=== PATIENT | female | born 1940 | race Caucasian/White ===

== ENCOUNTER 2017-03-15 10:27 | Emergency (ER) | payer MEDICARE, OTHER ==
[~2017-03-15] VITALS: Ht 162.6 cm; Wt 60.5 kg
[~2017-03-15 10:27] MED LIST: ACTOS30 MG PO; GLUCOPHAGE XR750 MG PO; LEVOXYL0.137 MG PO; NORCO 325 MG-51 TAB PO; PRAVACHOL 40MG40 MG PO; TRICOR145 MG PO
[2017-03-15 10:35] VITALS: TEMP 96.9
[2017-03-15] MEDS ORDERED: GLUCOPHAGE XR750 MG PO (10:56)
[2017-03-15] MEDS ORDERED: FISH OIL 1000MG1 CAP PO (10:57)
[2017-03-15] MEDS ORDERED: GLUCOSAMINE & C1 TAB PO (10:57)
[2017-03-15 11:34] LABS: ADJUSTED CALCIUM 7.4 mg/dL (8.4-10.2); ALBUMIN 4.4 gm/dL (3.5-5.0); BILIRUBIN,TOTAL 0.7 mg/dL (0.0-1.0); CALCIUM 7.7 mg/dL (8.4-10.2); CREATININE, serum 1.61 mg/dL (0.52-1.25); POTASSIUM 3.9 mmol/L (3.4-5.0); TOTAL PROTEIN 7.8 gm/dL (6.4-8.2)
[2017-03-15 11:35] LABS: BASO % 0.3 % (0.0-2.0); EOS # 0.4 (0.0-0.7); GRAN # 5.9 (1.4-6.5); GRAN % 67.7 % (42.2-75.2); HEMATOCRIT 43.4 % (37.0-47.0); HEMOGLOBIN 14.3 g/dl (12.5-16.0); LYMPH # 1.5 (1.2-3.4); LYMPH % 17.5 % (20.0-51.0); MEAN CELL VOLUME 90 fl (80.0-100.0); MEAN CORPUSCULAR HEMOGLOBIN 30 pg (27.0-31.0); MEAN CORPUSCULAR HGB CONC 33 g/dl (33.0-37.0); MEAN PLATELET VOLUME 10.4 fl (7.4-10.4); MONO # 0.9 (0.1-0.6); PLATELET COUNT 349 K/mm3 (130-400); RED BLOOD COUNT 4.82 M/mm3 (4.10-5.30); REDCELL DISTRIBUTION WIDTH-CV 12.1 % (11.5-14.5); WHITE BLOOD COUNT 8.7 K/mm3 (4.8-10.8)
[2017-03-15 12:00] LABS: PH 5 (5-8); URINE APPEARANCE Clear; URINE BACTERIA Rare /hpf; URINE BILIRUBIN Negative (NEGATIVE); URINE BLOOD Negative (NEGATIVE); URINE COLOR Yellow; URINE GLUCOSE Negative (NEGATIVE); URINE KETONE Negative (NEGATIVE); URINE RBC 0-2 /hpf; URINE UROBILINOGEN Negative (NEGATIVE)
[2017-03-15 13:31] VITALS: BP 143/57; PULSE 64
== END 2017-03-15 13:32 | disposition home or self-care (01) ==
LOC: COL.ER 10:27
PROVIDERS: Emergency Medicine
DX: N28.9 Disorder of kidney and ureter, unspecified (principal); R11.2 Nausea with vomiting, unspecified; R19.7 Diarrhea, unspecified; E11.9 Type 2 diabetes mellitus without complications; Z79.84 Long term (current) use of oral hypoglycemic drugs
CPT/HCPCS: C9113; J2405; J2765; J7030

== ENCOUNTER 2017-03-18 10:54 | Outpatient (CLI) | payer MEDICARE, OTHER ==
[~2017-03-18] VITALS: Ht 162.6 cm; Wt 60.0 kg
[~2017-03-18 10:54] MED LIST changes: +FISH OIL 1000MG1 CAP PO; +GLUCOSAMINE & C1 TAB PO
[2017-03-18 11:30] VITALS: BP 126/46; PULSE 72; TEMP 97.3
[2017-03-18] MEDS ORDERED: CIPRO 500MG TA500 MG PO (11:51)
== END 2017-03-18 13:49 | disposition home or self-care (01) ==
LOC: EUO 10:54
DX: E86.0 Dehydration (principal); K52.9 Noninfective gastroenteritis and colitis, unspecified; N28.9 Disorder of kidney and ureter, unspecified
CPT/HCPCS: J7030

== ENCOUNTER 2017-11-19 21:46 | Emergency (ER) | payer MEDICARE, OTHER ==
[~2017-11-19] VITALS: Ht 162.6 cm; Wt 59.5 kg
[~2017-11-19 21:46] MED LIST changes: +CIPRO 500MG TA500 MG PO; +LEVOXYL0.125 MG PO; -LEVOXYL0.137 MG PO
[2017-11-19 21:54] VITALS: TEMP 97.6
[2017-11-19] MEDS ORDERED: NORCO 325 MG-7.1 TAB PO (21:56)
[2017-11-19] MEDS ORDERED: CELEBREX 200MG200 MG PO (21:57)
[2017-11-19] MEDS ORDERED: ULTRAM 50MG TAB50 MG PO (21:57)
[2017-11-19 22:27] LABS: BASO % 0.3 % (0.0-2.0); EOS # 0.2 (0.0-0.7); EOS % 1.6 % (0-4.0); GRAN # 7.3 (1.4-6.5); GRAN % 70.7 % (42.2-75.2); HEMATOCRIT 37.2 % (37.0-47.0); HEMOGLOBIN 11.8 g/dl (12.5-16.0); LYMPH # 1.8 (1.2-3.4); LYMPH % 17.8 % (20.0-51.0); MEAN CELL VOLUME 92 fl (80.0-100.0); MEAN CORPUSCULAR HEMOGLOBIN 29 pg (27.0-31.0); MEAN CORPUSCULAR HGB CONC 32 g/dl (33.0-37.0); MEAN PLATELET VOLUME 11.3 fl (7.4-10.4); MONO # 0.9 (0.1-0.6); MONO % 8.8 % (1.7-9.3); PLATELET COUNT 323 K/mm3 (130-400); RED BLOOD COUNT 4.04 M/mm3 (4.10-5.30); REDCELL DISTRIBUTION WIDTH-CV 13.2 % (11.5-14.5)
[2017-11-19 22:28] LABS: COLLECTION METHOD CLEAN CATCH
[2017-11-19 22:35] LABS: PH 5 (5-8); SQUAMOUS EPITHELIAL 0-2 /hpf; URINE APPEARANCE Clear; URINE BACTERIA None Seen /hpf; URINE BILIRUBIN Negative (NEGATIVE); URINE BLOOD Negative (NEGATIVE); URINE COLOR Yellow; URINE GLUCOSE 3+ (NEGATIVE); URINE KETONE 1+ (NEGATIVE); URINE LEUKOCYTE ESTERASE Negative (NEGATIVE); URINE NITRATE Negative (NEGATIVE); URINE PROTEIN(semi-quant) Negative (NEGATIVE); URINE RBC 0-2 /hpf; URINE UROBILINOGEN Negative (NEGATIVE)
[2017-11-19 22:36] LABS: ALBUMIN 3.8 gm/dL (3.5-5.0); CALCIUM 9.8 mg/dL (8.4-10.2); CREATININE, serum 0.83 mg/dL (0.52-1.25); MAGNESIUM 1.9 mg/dL (1.6-2.3); PHOSPHOROUS 4.3 mg/dL (2.5-4.5); POTASSIUM 4.4 mmol/L (3.4-5.0); TOTAL PROTEIN 7.5 gm/dL (6.4-8.2)
[2017-11-19] MEDS ORDERED: VITAMIN C500 MG PO (22:59)
[2017-11-19] MEDS ORDERED: FOSAMAX5 MG PO (23:00)
[2017-11-19] MEDS ORDERED: NATURAL IRON65 MG (23:00)
[2017-11-20] MEDS ORDERED: ZOFRAN ODT4 MG PO (00:31)
[2017-11-20 00:44] VITALS: BP 129/83; PULSE 78
== END 2017-11-20 00:55 | disposition home or self-care (01) ==
LOC: COL.ER 21:46
PROVIDERS: Emergency Medicine
DX: R11.10 Vomiting, unspecified (principal); K59.00 Constipation, unspecified; E11.9 Type 2 diabetes mellitus without complications; Z90.49 Acquired absence of other specified parts of digestive tract; Z96.652 Presence of left artificial knee joint; Z79.84 Long term (current) use of oral hypoglycemic drugs
CPT/HCPCS: J2405; J2765; J7030

== ENCOUNTER 2017-11-22 03:54 | Observation (INO) | payer MEDICARE, OTHER ==
[~2017-11-22] VITALS: Ht 162.6 cm; Wt 60.1 kg
[~2017-11-22 03:54] MED LIST changes: +CELEBREX 200MG200 MG PO; +FOSAMAX5 MG PO; +NATURAL IRON65 MG; +NORCO 325 MG-7.1 TAB PO; +ULTRAM 50MG TAB50 MG PO; +VITAMIN C500 MG PO; +ZOFRAN ODT4 MG PO
[2017-11-22] MEDS ORDERED: ASPIRIN 32325 MG/TAB PO (04:12)
[2017-11-22] MEDS ORDERED: INSULIN SQ (04:13)
[2017-11-22] MEDS ORDERED: JARDIANCE10 PO (04:15)
[2017-11-22] MEDS ORDERED: COLACE 100100 MG/CAP PO (04:15)
[2017-11-22 04:23] LABS: BASO % 0.3 % (0.0-2.0); EOS # 0.1 (0.0-0.7); EOS % 1.3 % (0-4.0); GRAN # 8.4 (1.4-6.5); GRAN % 75.7 % (42.2-75.2); HEMATOCRIT 40.9 % (37.0-47.0); HEMOGLOBIN 13.2 g/dl (12.5-16.0); LYMPH # 1.4 (1.2-3.4); MEAN CELL VOLUME 91 fl (80.0-100.0); MEAN CORPUSCULAR HEMOGLOBIN 29 pg (27.0-31.0); MEAN CORPUSCULAR HGB CONC 32 g/dl (33.0-37.0); MEAN PLATELET VOLUME 10.6 fl (7.4-10.4); MONO # 0.9 (0.1-0.6); PLATELET COUNT 404 K/mm3 (130-400); RED BLOOD COUNT 4.49 M/mm3 (4.10-5.30)
[2017-11-22 04:35] LABS: INR 0.9 (0.8-3.0)
[2017-11-22 04:40] LABS: ALANINE AMINOTRANSFERASE 29 U/L (9-52); ALBUMIN 4.3 gm/dL (3.5-5.0); ALKALINE PHOSPHATASE 85 U/L (50-136); ANION GAP 19 mmol/L (7-16); AST,SGOT 29 U/L (15-37); BILIRUBIN,TOTAL 1.3 mg/dL (0.0-1.0); BLOOD UREA NITROGEN 16 mg/dL (7-17); CALCIUM 9.4 mg/dL (8.4-10.2); CARBON DIOXIDE 24 mmol/L (22-30); CHLORIDE 95 mmol/L (98-107); CREATININE, serum 0.79 mg/dL (0.52-1.25); GLUCOSE 150 mg/dL (74-106); LIPASE 59 U/L (23-300); POTASSIUM 4.5 mmol/L (3.4-5.0); SODIUM 138 mmol/L (137-145); TOTAL PROTEIN 8.9 gm/dL (6.4-8.2)
[2017-11-22 04:54] LABS: TROPONIN-I < 0.012 ng/mL (0.000-0.034)
[2017-11-22] MEDS ORDERED: FOLIC ACID 40400 MCG PO (05:34)
[2017-11-22 07:49] VITALS: BP 161/55; PULSE 76; TEMP 98
[2017-11-22 11:39] VITALS: BP 143/57; PULSE 98; TEMP 98.6
[2017-11-22 14:51] VITALS: BP 153/54; PULSE 91; TEMP 99.2
[2017-11-22] MEDS ORDERED: MIRALAX PA17 GM/Dose PO (18:25)
== END 2017-11-22 19:00 | disposition home or self-care (01) ==
LOC: COL.ER 03:54 → SURG 06:25
PROVIDERS: Emergency Medicine
DX: R11.2 Nausea with vomiting, unspecified (principal); I10 Essential (primary) hypertension; M19.90 Unspecified osteoarthritis, unspecified site; E11.9 Type 2 diabetes mellitus without complications; Z90.710 Acquired absence of both cervix and uterus; Z90.49 Acquired absence of other specified parts of digestive tract; Z96.652 Presence of left artificial knee joint; Z79.4 Long term (current) use of insulin; Z83.3 Family history of diabetes mellitus
CPT/HCPCS: G0378; J2765; J7030; Q9967

== ENCOUNTER → 2018-10-13 | Outpatient (CLI) | payer MEDICARE, OTHER ==
[~2018-10-13] MED LIST changes: +ASPIRIN 32325 MG/TAB PO; +COLACE 100100 MG/CAP PO; +FOLIC ACID 40400 MCG PO; +INSULIN SQ; +JARDIANCE10 PO; +MIRALAX PA17 GM/Dose PO
== END ==
LOC: MC.RAD 08:15
DX: Z12.31 Encounter for screening mammogram for malignant neoplasm of breast (principal)

== ENCOUNTER 2018-11-01 14:03 | Outpatient (CLI) | payer MEDICARE, OTHER ==
[~2018-11-01] VITALS: Ht 162.6 cm; Wt 69.2 kg
[2018-11-01] MEDS ORDERED: TRESIBA FL100 UNIT/1 SQ (14:15)
[2018-11-01 14:30] VITALS: BP 176/70; PULSE 76; TEMP 97
== END 2018-11-01 15:30 | disposition home or self-care (01) ==
LOC: EUO 14:03
DX: M81.0 Age-related osteoporosis without current pathological fracture (principal)
CPT/HCPCS: J0897

== ENCOUNTER 2021-01-02 14:02 | Outpatient (CLI) | payer MEDICARE, OTHER ==
[~2021-01-02] VITALS: Ht 162.6 cm; Wt 65.5 kg
[~2021-01-02 14:02] MED LIST changes: +LEVOXYL0.1 MG PO; -LEVOXYL0.125 MG PO; +TRESIBA FL100 UNIT/1 SQ
[2021-01-02] MEDS ORDERED: GLUCOPHAGE500 MG/TAB PO (14:55)
[2021-01-02] MEDS ORDERED: HUMALOG100 U/ML SQ (14:55)
[2021-01-02] MEDS ORDERED: HYZAAR 25 MG-101 TAB PO (14:56)
[2021-01-02] MEDS ORDERED: ACTOS30 MG PO (14:57)
[2021-01-02 15:17] VITALS: BP 132/43; PULSE 69; TEMP 98.8
== END 2021-01-02 15:18 | disposition home or self-care (01) ==
LOC: EUO 14:02
DX: M81.0 Age-related osteoporosis without current pathological fracture (principal)
CPT/HCPCS: J0897

== ENCOUNTER 2021-07-13 12:36 | Inpatient (IN) | payer MEDICARE, OTHER ==
[~2021-07-13] VITALS: Ht 162.6 cm; Wt 66.8 kg
[~2021-07-13 12:36] MED LIST changes: +GLUCOPHAGE500 MG/TAB PO; +HUMALOG100 U/ML SQ; +HYZAAR 25 MG-101 TAB PO
[2021-07-13 13:51] LABS: BASO % 0.3 % (0.0-2.0); EOS # 0.1 K/mm3 (0.0-0.7); EOS % 0.8 % (0.0-4.0); GRAN # 9.7 K/mm3 (1.4-6.5); GRAN % 82.8 % (42.2-75.2); HEMOGLOBIN 11.9 g/dl (12.5-16.0); LYMPH # 0.8 K/mm3 (1.2-3.4); LYMPH % 6.8 % (20.0-51.0); MEAN CELL VOLUME 91 fl (80.0-100.0); MEAN CORPUSCULAR HEMOGLOBIN 30 pg (27-31); MEAN CORPUSCULAR HGB CONC 33 g/dl (33.0-37.0); MONO % 8.6 % (1.7-9.3); PLATELET COUNT 349 K/mm3 (130-400); RED BLOOD COUNT 4.02 M/mm3 (4.10-5.30); REDCELL DISTRIBUTION WIDTH-CV 12.6 % (11.5-14.5)
[2021-07-13 13:57] LABS: HEMATOCRIT 36.4 % (37.0-47.0)
[2021-07-13 14:11] LABS: ALBUMIN 3.2 gm/dL (3.4-4.8); BILIRUBIN,TOTAL 1.1 mg/dL (0.2-1.2); C-REACTIVE PROTEIN 7.36 mg/dL (0.00-0.50); CALCIUM 8.5 mg/dL (8.4-10.2); CREATININE, serum 1.73 mg/dL (0.57-1.11); POTASSIUM 3.5 mmol/L (3.5-4.5); TOTAL PROTEIN 7.2 gm/dL (6.2-8.1)
[2021-07-13 15:53] LABS: COLLECTION METHOD CLEAN CATCH
[2021-07-13 16:01] LABS: PH 5 (5-8); SQUAMOUS EPITHELIAL 0-2 /hpf (0-10); URINE APPEARANCE Hazy (CLEAR/HAZY); URINE BACTERIA Rare /hpf (NONE SEEN); URINE BILIRUBIN Negative (NEGATIVE); URINE BLOOD Negative (NEGATIVE); URINE COLOR Yellow (YELLOW); URINE GLUCOSE Negative (NEGATIVE); URINE KETONE Trace (NEGATIVE); URINE LEUKOCYTE ESTERASE Negative (NEGATIVE); URINE NITRATE Negative (NEGATIVE); URINE PROTEIN(semi-quant) Negative (NEGATIVE); URINE RBC 0-2 /hpf (0-2)
--- NOTE | 2021-07-13 19:59 | NUR ---
RECEIVED REPORT FROM Sacha GRANT, HERON. WAITING FOR PATIENT ARRIVAL FOR ADMIT TO ROOM 343.
--- NOTE | 2021-07-13 20:17 | NUR ---
PATIENT TO ROOM PER W/C FROM E.R. PATIENT WITH NO COMPLAINTS ON ADMIT TO ROOM 343
[2021-07-13 20:25] VITALS: BP 145/50; PULSE 74; TEMP 98.3
[2021-07-14] VITALS (7 sets, daily range): BP systolic 120–141; BP diastolic 37–61; PULSE 63–70; TEMP 97.6–98.6
[2021-07-14 06:48] LABS: BASO % 0.3 % (0.0-2.0); EOS # 0.1 K/mm3 (0.0-0.7); EOS % 1.4 % (0.0-4.0); GRAN # 7.6 K/mm3 (1.4-6.5); GRAN % 77.9 % (42.2-75.2); HEMOGLOBIN 10.8 g/dl (12.5-16.0); LYMPH # 1.1 K/mm3 (1.2-3.4); LYMPH % 10.9 % (20.0-51.0); MEAN CELL VOLUME 91 fl (80.0-100.0); MEAN CORPUSCULAR HEMOGLOBIN 30 pg (27-31); MEAN CORPUSCULAR HGB CONC 33 g/dl (33.0-37.0); MEAN PLATELET VOLUME 11.6 fl (7.4-10.4); MONO # 0.9 K/mm3 (0.1-0.6); MONO % 9.1 % (1.7-9.3); PLATELET COUNT 338 K/mm3 (130-400); RED BLOOD COUNT 3.64 M/mm3 (4.10-5.30); REDCELL DISTRIBUTION WIDTH-CV 12.7 % (11.5-14.5)
[2021-07-14 07:00] LABS: HEMATOCRIT 33.2 % (37.0-47.0)
[2021-07-14 07:17] LABS: ALBUMIN 2.8 gm/dL (3.4-4.8); CALCIUM 8.2 mg/dL (8.4-10.2); CREATININE, serum 1.62 mg/dL (0.57-1.11); MAGNESIUM 1.6 mg/dL (1.6-2.6); PHOSPHOROUS 2.6 mg/dL (2.3-4.7); POTASSIUM 3.7 mmol/L (3.5-4.5)
--- NOTE | 2021-07-14 07:33 | NUR ---
CHANGE OF SHIFT REPORT GIVEN TO DAY SHIFT RNLORENA
--- NOTE | 2021-07-14 09:15 | NUR ---
Pt resting in bed upon entering room. She has just returned from the restroom in which she stated she had a small bowel movement. Pt rates her pain 3/10 at this time and stated that she wouldn't need anything until closer to 7/10. Pt reports that she occasionally gets dizzy when she changes positions too fast. Educated to make sure to ring for nursing staff to help her get up if needed. PT in working with pt as we were leaving
--- NOTE | 2021-07-14 10:41 | NUR ---
SELWYN met with the patient to discuss discharge plan. The patient lives alone in a duplex in [place]. She reports independence with ADLs and does not have any DME. The patient's PCP is Dr. Fracisco Youngblood and she receives her medications from [facility]. She reports no difficulties obtaining her meds. The patient does not have a DPOA-HC in EMR, but she states that she does have one completed and that her PCP's office should have a copy of it. She reports that she designated her daughter, Terri (ph#[phone]). She states that she lost her to YESSICA and has three children: Terri, Mynor, and Enedina. SELWYN contacted Mae at Dr. Youngblood's office and requested a copy. Mae reports that they do have a DPOA-HC on file and will fax it to the surgical unit. The patient plans on returning home upon discharge. No additional needs at this time. *Discharge plan: home*
--- NOTE | 2021-07-14 10:56 | NUR ---
Initial visit; Patient thanked Academic Computing Director for looking in on her, offering prayer and God's blessings.
--- NOTE | 2021-07-14 14:30 | NUR ---
IV in left AC started leaking. New IV started in left forearm. Pt tolerated well. Pt denies any needs, continues to rate pain 3/10 and is steady on her feet to the restroom
--- NOTE | 2021-07-14 20:00 | NUR ---
PT AWAKE, ALERT AND ORIENTED X4. HAS IVF TO LEFT WRIST INFUSING WITHOUT PROBLEM. IS NPO. DENIES NEED FOR PAIN MEDS, REPORTS PASSING FLATUS.
[2021-07-15 04:10] VITALS: BP 157/52; PULSE 64; TEMP 97.9
--- NOTE | 2021-07-15 06:00 | NUR ---
PT TAKES SHOWER. NO BM'S THIS SHIFT. SCHEDULED AM MED GIVEN WITH SIP OF WATER.
[2021-07-15 06:52] LABS: BASO # 0.1 K/mm3 (0.0-0.2); BASO % 0.7 % (0.0-2.0); EOS # 0.2 K/mm3 (0.0-0.7); EOS % 2.6 % (0.0-4.0); GRAN # 6.8 K/mm3 (1.4-6.5); GRAN % 73.9 % (42.2-75.2); HEMOGLOBIN 10.5 g/dl (12.5-16.0); LYMPH # 1.2 K/mm3 (1.2-3.4); LYMPH % 12.9 % (20.0-51.0); MEAN CELL VOLUME 91 fl (80.0-100.0); MEAN CORPUSCULAR HEMOGLOBIN 30 pg (27-31); MEAN CORPUSCULAR HGB CONC 32 g/dl (33.0-37.0); MEAN PLATELET VOLUME 11.5 fl (7.4-10.4); MONO # 0.8 K/mm3 (0.1-0.6); MONO % 8.8 % (1.7-9.3); PLATELET COUNT 381 K/mm3 (130-400); RED BLOOD COUNT 3.55 M/mm3 (4.10-5.30); REDCELL DISTRIBUTION WIDTH-CV 12.8 % (11.5-14.5)
[2021-07-15 06:54] LABS: HEMATOCRIT 32.4 % (37.0-47.0)
[2021-07-15 07:17] LABS: ALBUMIN 2.9 gm/dL (3.4-4.8); CALCIUM 8.4 mg/dL (8.4-10.2); CREATININE, serum 1.39 mg/dL (0.57-1.11); MAGNESIUM 1.7 mg/dL (1.6-2.6); POTASSIUM 3.5 mmol/L (3.5-4.5)
[2021-07-15 07:33] VITALS: BP 123/45; PULSE 62; TEMP 97.9
--- NOTE | 2021-07-15 08:14 | NUR ---
Pt overall doing well this morning. She has been up and took a shower. Reports that her pain continues to get better. She still states that she occasionally has some upper gastric pain, but that it is tolerable. Pt aware that she continues to not have anything to eat or drink. IV fluids switched per order. No other needs, call light within reach
--- NOTE | 2021-07-15 10:42 | NUR ---
Pt has had low fiber breakfast. She tolerated with no complaints of nausea or vomiting as of now. Pt aware that there is an order that will require a urine sample. Supplies placed in bathroom. Pt denies any other needs, call light within reach.
[2021-07-15 11:20] VITALS: BP 125/47; PULSE 70; TEMP 97.9
--- NOTE | 2021-07-15 12:43 | NUR ---
Follow-up; Patient states she is doing much better today and states she is glad to see Manager Decision Support who wished her God's blessings ie. healing.
--- NOTE | 2021-07-15 14:00 | NUR ---
Pt doing well at this time. She reports that since she had a mid morning breakfast, she might not eat any lunch. Informed her that she can order small things if needed or if she just wants a snack. Pt reports that she is having little to no pain. Continues to get up independently in the room. Call light within reach, will continue to monitor
[2021-07-15 16:00] VITALS: BP 150/48; PULSE 65; TEMP 98.6
--- NOTE | 2021-07-15 18:30 | NUR ---
Pt resting in bed eating some dinner at this time. Pts daughter in room with her. She stated that she had a moment of confusion where she was trying to use the call light to order her dinner and became frustrated. Informed her to just ring her call light so that we can help her. Pt reporting that her pain is doing okay and she is tolerating the regular food.
[2021-07-15 19:35] VITALS: BP 153/45; PULSE 70; TEMP 98.4
--- NOTE | 2021-07-15 20:00 | NUR ---
Pt. sitting up in bed. Pt. is A&OX3, assessment complete. IV to lt. forearm patent, IV fluids infusing per orders. Pt. denies pain or other needs at this time. Call light within reach.
[2021-07-16 00:27] VITALS: BP 151/54; PULSE 62; TEMP 98.3
[2021-07-16 02:56] VITALS: BP 152/50; PULSE 61; TEMP 98.1
[2021-07-16 06:32] LABS: HEMOGLOBIN 10.8 g/dl (12.5-16.0); MEAN CELL VOLUME 90 fl (80.0-100.0); MEAN CORPUSCULAR HEMOGLOBIN 29 pg (27-31); MEAN CORPUSCULAR HGB CONC 33 g/dl (33.0-37.0); PLATELET COUNT 368 K/mm3 (130-400); RED BLOOD COUNT 3.67 M/mm3 (4.10-5.30); REDCELL DISTRIBUTION WIDTH-CV 12.7 % (11.5-14.5)
[2021-07-16 06:36] LABS: HEMATOCRIT 32.9 % (37.0-47.0)
[2021-07-16 06:49] LABS: ALBUMIN 2.7 gm/dL (3.4-4.8); CALCIUM 8.5 mg/dL (8.4-10.2); CREATININE, serum 1.35 mg/dL (0.57-1.11); MAGNESIUM 1.4 mg/dL (1.6-2.6); PHOSPHOROUS 2.7 mg/dL (2.3-4.7); POTASSIUM 3.9 mmol/L (3.5-4.5)
--- NOTE | 2021-07-16 07:25 | NUR ---
Pt doing well this morning. She has already been up and took a shower. Pt reports having some liquid stool. She has ordered breakfast. No other needs, call light within reach, will continue to monitor
[2021-07-16 08:03] VITALS: BP 177/51; PULSE 60; TEMP 97.7
[2021-07-16 08:15] LABS: EOSINOPHIL 2 % (0-4); LYMPHOCYTE 17 % (20.0-51.0); NEUTROPHILS 73 % (42.0-75.2); PLATELET ESTIMATE NORMAL (NORMAL)
--- NOTE | 2021-07-16 09:37 | NUR ---
Follow-up visit; Patient doing better and is out walking with Physicla Therapist.
[2021-07-16] MEDS ORDERED: AMOXICILLIN 8751 TAB PO (10:38)
--- NOTE | 2021-07-16 11:00 | NUR ---
Pt continues to do well and is planning on going home today. She stated that her daughter will not be able to pick her up until closer to 5 or 6 this evening. Pt reports not having any pain. Fluids Int'd, but IV left in place for this time
[2021-07-16 11:27] VITALS: BP 168/60; PULSE 67; TEMP 98.3
--- NOTE | 2021-07-16 11:54 | NUR ---
The patient is to discharge back home today, 07/16. SELWYN met with the patient and presented and read the IM form outloud to her. The patient verbalized understanding and signed the form. SW provided her with a copy. No additional needs at this time.
--- NOTE | 2021-07-16 13:36 | NUR ---
Pt called and reported that she has a neighbor that can come pick her up. Informed her that I would finished paperwork and bring it in and for her friend to call when he gets here and we would escort her out
--- NOTE | 2021-07-16 14:00 | NUR ---
Reviewed discharge instructions with pt to include new prescription as well as needed lab work and follow up appointment. INT removed from left hand and pt escorted out via wheelchair
== END 2021-07-16 14:10 | disposition home or self-care (01) | DRG 392 ==
LOC: COL.ER 12:36 → SURG 18:54
PROVIDERS: Nurse Practitioner; ADMIT Internal Medicine
DX: K57.20 Diverticulitis of large intestine with perforation and abscess without bleeding (principal); N17.9 Acute kidney failure, unspecified; E11.9 Type 2 diabetes mellitus without complications; I10 Essential (primary) hypertension; E03.9 Hypothyroidism, unspecified; E78.5 Hyperlipidemia, unspecified; E83.42 Hypomagnesemia; Z96.652 Presence of left artificial knee joint; Z79.4 Long term (current) use of insulin
CPT/HCPCS: 99223-AI; 99232-AI; 99239; J1815; J2543; J3475; J7030; J7120

== ENCOUNTER 2021-07-22 14:44 | Outpatient (CLI) | payer MEDICARE, OTHER ==
[~2021-07-22] VITALS: Ht 162.6 cm; Wt 68.9 kg
[~2021-07-22 14:44] MED LIST changes: +AMOXICILLIN 8751 TAB PO
[2021-07-22 15:18] VITALS: BP 157/58; PULSE 53; TEMP 98.3
== END 2021-07-22 15:49 ==
LOC: EUO 14:44
DX: M81.0 Age-related osteoporosis without current pathological fracture (principal)
CPT/HCPCS: J0897

== ENCOUNTER → 2021-08-11 | Outpatient (CLI) | payer MEDICARE, OTHER ==
[2021-08-11 13:19] LABS: CREATININE, serum 1.24 mg/dL (0.57-1.11)
== END ==
LOC: COL.LAB 12:52
PROVIDERS: Internal Medicine Nephrology
DX: Z01.89 Encounter for other specified special examinations (principal)

== ENCOUNTER 2021-08-24 23:53 | Inpatient (IN) | payer MEDICARE, OTHER ==
[~2021-08-24] VITALS: Ht 165.1 cm; Wt 68.2 kg
[2021-08-25] VITALS (10 sets, daily range): BP systolic 99–138; BP diastolic 30–56; PULSE 66–81; TEMP 98.7–98.8
[2021-08-25 00:21] LABS: BASO % 0.2 % (0.0-2.0); EOS % 0.1 % (0.0-4.0); GRAN # 8.8 K/mm3 (1.4-6.5); GRAN % 82.9 % (42.2-75.2); HEMATOCRIT 39.9 % (37.0-47.0); HEMOGLOBIN 12.7 g/dl (12.5-16.0); LYMPH # 1.5 K/mm3 (1.2-3.4); LYMPH % 14.1 % (20.0-51.0); MEAN CELL VOLUME 92 fl (80.0-100.0); MEAN CORPUSCULAR HEMOGLOBIN 29 pg (27-31); MEAN CORPUSCULAR HGB CONC 32 g/dl (33.0-37.0); MEAN PLATELET VOLUME 10.5 fl (7.4-10.4); MONO # 0.3 K/mm3 (0.1-0.6); MONO % 2.4 % (1.7-9.3); PLATELET COUNT 267 K/mm3 (130-400); RED BLOOD COUNT 4.35 M/mm3 (4.10-5.30); REDCELL DISTRIBUTION WIDTH-CV 14.1 % (11.5-14.5)
[2021-08-25 00:40] LABS: BILIRUBIN,TOTAL 0.6 mg/dL (0.2-1.2); CALCIUM 9.8 mg/dL (8.4-10.2); CREATININE, serum 1.19 mg/dL (0.57-1.11)
[2021-08-25 01:20] LABS: COLLECTION METHOD CLEAN CATCH
[2021-08-25 01:29] LABS: PH 5 (5-8); URINE APPEARANCE Hazy (CLEAR/HAZY); URINE BACTERIA None Seen /hpf (NONE SEEN); URINE BILIRUBIN Negative (NEGATIVE); URINE BLOOD Negative (NEGATIVE); URINE COLOR Yellow (YELLOW); URINE GLUCOSE Negative (NEGATIVE); URINE KETONE Negative (NEGATIVE); URINE LEUKOCYTE ESTERASE Negative (NEGATIVE); URINE NITRATE Negative (NEGATIVE); URINE PROTEIN(semi-quant) Negative (NEGATIVE); URINE RBC 0-2 /hpf (0-2); URINE UROBILINOGEN Negative (NEGATIVE)
--- NOTE | 2021-08-25 06:10 | NUR ---
Patient arrived to room 347 at 0525. Report received from JUANITA Harley. Admission assessments completed. First dose of Zosyn has been completed. Patient has been oriented to the room. Patient has no complaints at this time. Call light within reach.
--- NOTE | 2021-08-25 09:50 | NUR ---
Social Work student and SELWYN Ocampo met with the family in room while the patient was in recovery. Terri(ph#[phone]), the daughter, answered the questions. Patient is from [place] and lives alone. Terri said that the patient receives her medications from [facility], and that she sees Dr. Fracisco Youngblood for primary care. The patient's daughter states that she has had no problems affording the medications. The patient's daughter states that she does not utilize any durable medical equiptment or oxygen needs at home. She also stated that she is independent with her ADL's. The patient's daughter stated that they do have a DPOA-HC filled out, but it has yet to be notarized. Therefore, to establish next of kin, the patient has three children: Terri, Mynor, and Enedina. She is a . Discharge plan: Home pending PT/OT recs
--- NOTE | 2021-08-25 10:00 | NUR ---
PATIENT IS ORIENTED BUT DROWSY POST OP. VSS. DENIES PAIN OR NAUSEA. EPIDURAL INPLACE AND INFUSING AT 5CC/HR. PATIENT USED EPIDURAL ONCE IN PACU AND VERBALIZED TEACHING. ABD MIDLINE INCISION IS CD&I WITH GAUZE. ABD IS DISTENDED WITH HYPO BOWL SOUNDS PRESENT. LEARY TO DD WITH SMALL AMOUNT OF YELLOW URINE NOTED. IV FLUIDS INFUSING INTO RIGHT HAND IV. RIGHT FORARM IV TO INT. LEFT SUBCLAVIAN TRIPLE LUMEN TO INT. HEAD TO TOE ASSESSMENT COMPLETE. FAMILY AT BEDSIDE. ORIENTED TO ROOM. CALL LIGHT IN REACH.
--- NOTE | 2021-08-25 12:35 | NUR ---
First visit from the ambulance driver paramedic. No needs right now.
--- NOTE | 2021-08-25 14:55 | NUR ---
PATIENT SLEEPING SOUNDLY. VSS. NO NEEDS. CALL LIGHT IN REACH.
--- NOTE | 2021-08-26 02:00 | NUR ---
Report received from day shift nurse. Patient is resting quietly in her bed. Bowel resection was performed today, patient has a midline incision. Dressing is CD&I. Patient has an epidural running at 50ml/hr and has no complaints of pain. Full body assessment completed and vital signs are WNL. Patient is A&Ox3 and pleasant. Chamorro is in place and draining adequately. No complaints at this time. Call light within reach.
[2021-08-26 04:00] VITALS: BP 99/40; PULSE 66; TEMP 98.7
--- NOTE | 2021-08-26 05:34 | NUR ---
Patients blood sugar was 79, apple juice was given. Will redraw blood sugar.
[2021-08-26 05:43] LABS: BASO % 0.2 % (0.0-2.0); EOS % 0.2 % (0.0-4.0); GRAN # 9.5 K/mm3 (1.4-6.5); GRAN % 82.1 % (42.2-75.2); LYMPH # 1.2 K/mm3 (1.2-3.4); LYMPH % 10.8 % (20.0-51.0); MEAN CELL VOLUME 94 fl (80.0-100.0); MEAN CORPUSCULAR HGB CONC 32 g/dl (33.0-37.0); MEAN PLATELET VOLUME 11.4 fl (7.4-10.4); MONO # 0.7 K/mm3 (0.1-0.6); MONO % 6.3 % (1.7-9.3); PLATELET COUNT 213 K/mm3 (130-400); RED BLOOD COUNT 3.26 M/mm3 (4.10-5.30); REDCELL DISTRIBUTION WIDTH-CV 14.6 % (11.5-14.5)
[2021-08-26 05:55] LABS: CALCIUM 7.9 mg/dL (8.4-10.2); CREATININE, serum 1.33 mg/dL (0.57-1.11); POTASSIUM 4.5 mmol/L (3.5-4.5)
[2021-08-26 06:10] LABS: HEMATOCRIT 30.5 % (37.0-47.0); HEMOGLOBIN 9.8 g/dl (12.5-16.0); MEAN CORPUSCULAR HEMOGLOBIN 30 pg (27-31)
[2021-08-26 07:24] VITALS: BP 128/48; PULSE 66; TEMP 97.7
--- NOTE | 2021-08-26 09:06 | NUR ---
Pt assessment completed and documented in computer. Pt is A&O x4, denies any pain with surgical incision. ABD is CDI. Central line to left subclavian dressing is CDI. Peripheral IV in right wrist and INT in right hand both have CDI dressings. Epidural to mid lower back has an intact dressing with scant amount of blood noted. No edema. Blood glucose this am was 88, insulin was held per sliding scale protocol. Pt is on clear liquid diet and is sipping on juice. Will continue to monitor blood glucose. Chamorro to dependent drainage with clear yellow urine.
[2021-08-26 11:02] VITALS: BP 135/37; PULSE 76; TEMP 98.9
[2021-08-26 16:01] VITALS: BP 157/56; PULSE 88; TEMP 99
[2021-08-26 17:06] LABS: HEMATOCRIT 30.5 % (37.0-47.0); HEMOGLOBIN 9.7 g/dl (12.5-16.0)
--- NOTE | 2021-08-26 19:01 | NUR ---
PT REPORTS MILD PAIN, HAS NOT HAD TO BOLUS HER EPIDURAL, UP IN HALLS WITH THERAPY. PT WITH ACTIVE BOWEL SOUNDS AND HAS PASSED GAS. PT CONTINUES TO SIP ON CLEAR LIQUIDS. PT'S NAUSEA IMPROVED AT END OF SHIFT. PT EAGER FOR EPIDURAL TO BE REMOVED.
[2021-08-26 19:21] VITALS: BP 149/43; PULSE 85; TEMP 99.8
--- NOTE | 2021-08-26 22:00 | NUR ---
Patient assesesd around 2049. Alert and oriented x 4, and able to make needs known. Denies pain and discomfort. Peripheral INTs to right wrist and hand taken out. Patient has TLC to left subclavian. Blood return. IV fluids running per orders. Denies SOB and dyspnea. LS CTA. HRR. BSAx4. Reports no BM, but is passing gas. ABD dressing to abdominal midline incision in place. Small amount of drainage to dressing, but not change in amount noted. Indwelling blancas catheter patent, with clear yellow urine. No edema. Has epidural in place for pain management. Voices no questions, needs, or concerns at this time. In bed with call light within reach.
[2021-08-26 23:53] VITALS: BP 134/70; PULSE 84; TEMP 99.3
[2021-08-27 04:29] VITALS: BP 130/46; PULSE 77; TEMP 99.4
--- NOTE | 2021-08-27 05:38 | NUR ---
Patient continues to have epidural. Denies pain and discomfort. Continues to pass gas, but no BM yet. Voices no questions, needs, or concerns at this time. In bed with call light within reach.
[2021-08-27 06:53] LABS: CALCIUM 7.1 mg/dL (8.4-10.2); CREATININE, serum 1.03 mg/dL (0.57-1.11)
[2021-08-27 06:56] VITALS: BP 143/53; PULSE 78; TEMP 98.9
[2021-08-27 07:18] LABS: BASO % 0.2 % (0.0-2.0); EOS # 0.2 K/mm3 (0.0-0.7); EOS % 1.9 % (0.0-4.0); GRAN # 7.6 K/mm3 (1.4-6.5); GRAN % 80.2 % (42.2-75.2); LYMPH # 1.1 K/mm3 (1.2-3.4); LYMPH % 11.2 % (20.0-51.0); MEAN CELL VOLUME 94 fl (80.0-100.0); MEAN CORPUSCULAR HGB CONC 32 g/dl (33.0-37.0); MEAN PLATELET VOLUME 11.7 fl (7.4-10.4); MONO # 0.6 K/mm3 (0.1-0.6); PLATELET COUNT 183 K/mm3 (130-400); RED BLOOD COUNT 3.06 M/mm3 (4.10-5.30); REDCELL DISTRIBUTION WIDTH-CV 14.3 % (11.5-14.5)
[2021-08-27 07:19] LABS: HEMATOCRIT 28.7 % (37.0-47.0); HEMOGLOBIN 9.1 g/dl (12.5-16.0); MEAN CORPUSCULAR HEMOGLOBIN 30 pg (27-31)
--- NOTE | 2021-08-27 09:33 | NUR ---
Initial visit; Patient remembered Stem Roller Or Crusher Operator from a recent hospitalization. She is now recovering from a surgical procedure. Stem Roller Or Crusher Operator offered prayer, comfort and god's blessings. Yuriy thanked Stem Roller Or Crusher Operator for visiting.
[2021-08-27 11:14] VITALS: BP 160/60; PULSE 78; TEMP 98.3
--- NOTE | 2021-08-27 14:06 | NUR ---
Received report from JUANITA Herrera. Pt resting in bed, with minimal to no pain complaints. Pt currently states that she is not having any pain. Airstrip to abd with small amount of drainge, slightly larger than a quarter. Pt is tolerating full liquids, no complaints of nausea or vomiting. Pt reports that she is passing as. Active bowel sounds all 4 quadrants, heart rate regular and lung sounds clear. Pt denies any needs at this time
--- NOTE | 2021-08-27 14:15 | NUR ---
Assessment completed, alert/oriented, vital signs stable, pain controlled with Epidural, abd soft and BS+, midline incision site dressing is C/D/I, tolerating Full liq diet well, lungs CTA/ denies resp.difficulty, heart RRR/ Distal pulses aer palpable, up ambulating with assistance/ PT/OT on the case, she denies othe needs at this time, will continue to monitor, student nurse providing primary cares
[2021-08-27 15:37] VITALS: BP 151/57; PULSE 73; TEMP 98.4
--- NOTE | 2021-08-27 18:21 | NUR ---
Pt has done well the remainder of the shift. Minimal pain complaints. Dr Allred has been in to see patient, new orders wrote. Educated pt on new orders, pt verbalized understanding. Full liquid diet has been ordered for her. Pts daughter is at bedside. No other needs, call light within reach
--- NOTE | 2021-08-27 19:19 | NUR ---
RECEIVED CHANGE OF SHIFT REPORT FROM DAY SHIFT RN.
[2021-08-27 19:46] VITALS: BP 170/50; PULSE 81; TEMP 98.2
[2021-08-27 21:17] VITALS: BP 167/62
[2021-08-28] VITALS (7 sets, daily range): BP systolic 124–179; BP diastolic 46–101; PULSE 71–89; TEMP 97.7–98.6
--- NOTE | 2021-08-28 01:11 | NUR ---
PATIENT RESTING WITH EVEN RESP, EPIDURAL PATENT W/SITE CLEAR/DRSG INTACT. LEARY TO DD, DRAINING WITH NO PROBLEMS. LTLSC INT X3 PORTS. NO NEEDS REPORTED. PATIENT ON ROOM AIR. REPOSITIONS SELF WITH NO PROBLEMS.
--- NOTE | 2021-08-28 06:58 | NUR ---
CHANGE OF SHIFT REPORT GIVEN TO DAY SHIFT RNLORENA.
--- NOTE | 2021-08-28 07:30 | NUR ---
Pt doing well this morning, states pain is tolerable. Discussed breakfast with her and ordered breakfast for her. Called anesthesia for epidural removal. Chamorro has been discontinued by weight shifter. Discussed the plan for the day. Pt does have an [employer] student working with her today as well
[2021-08-28 08:38] LABS: BASO % 0.3 % (0.0-2.0); EOS # 0.4 K/mm3 (0.0-0.7); EOS % 4.7 % (0.0-4.0); GRAN # 5.8 K/mm3 (1.4-6.5); GRAN % 76.4 % (42.2-75.2); HEMATOCRIT 29.2 % (37.0-47.0); HEMOGLOBIN 9.6 g/dl (12.5-16.0); LYMPH # 0.8 K/mm3 (1.2-3.4); LYMPH % 11.1 % (20.0-51.0); MEAN CELL VOLUME 92 fl (80.0-100.0); MEAN CORPUSCULAR HEMOGLOBIN 30 pg (27-31); MEAN CORPUSCULAR HGB CONC 33 g/dl (33.0-37.0); MEAN PLATELET VOLUME 10.9 fl (7.4-10.4); MONO # 0.5 K/mm3 (0.1-0.6); MONO % 7.1 % (1.7-9.3); PLATELET COUNT 194 K/mm3 (130-400); RED BLOOD COUNT 3.19 M/mm3 (4.10-5.30); REDCELL DISTRIBUTION WIDTH-CV 13.7 % (11.5-14.5)
[2021-08-28 08:55] LABS: CALCIUM 7.3 mg/dL (8.4-10.2); CREATININE, serum 0.81 mg/dL (0.57-1.11); POTASSIUM 3.9 mmol/L (3.5-4.5)
--- NOTE | 2021-08-28 09:46 | NUR ---
SELWYN staffed with the PA. The patient may be able to discharge tomorrow. SELWYN met with the patient to follow up and review discharge plan. The patient states that she is doing well and has been getting around well. PT/OT recommend home. PT is monitoring if the patient will need any outpatient therapy or home health. SELWYN discussed outpatient therapy and home health with the patient. The patient declined both and states that she does not feel like she needs those services at this time. She states that the only thing she may need help with is meals and she has some friends that may be able to help her. She is agreeable to possible discharge tomorrow. SELYWN presented and read the IM form outloud to the patient. The patient verbalized understanding and signed the form. SELWYN provided her with a copy. *Discharge plan: home*
--- NOTE | 2021-08-28 12:00 | NUR ---
Pt has done well so far this morning. She did get cleaned up with OT. She states that her pain is tolerable and has not needed anything since having the epidural removed. Pt is voiding without difficulty since blancas catheter removed. Pt tolerating general diet, just eating small portions.
--- NOTE | 2021-08-28 14:12 | NUR ---
Patient is provided list pf private duty caregivers that service the area. Patient is interested in someone coming out and helping with meals and nutrition education. Patient verbalizes that she will reach out to one of the agencies.
--- NOTE | 2021-08-28 20:45 | NUR ---
Pt. sitting up in bed. Pt. is A&OX3 but is forgetful. Shift assessment complete. TLC to lt. chest CDI. Abd. midlin incision well approximated, mazin intact. Pt. denies pain or other needs, call light within reach.
[2021-08-29 03:47] VITALS: BP 156/65; PULSE 66; TEMP 98.4
[2021-08-29 07:20] VITALS: BP 179/59; PULSE 70; TEMP 97.6
[2021-08-29] MEDS ORDERED: AMOXICILLIN 8751 TAB PO (09:06)
--- NOTE | 2021-08-29 12:08 | NUR ---
Met with patient and both daughters at bedside per request. Patient wanted to clarify what private duty caregivers would be able to provide. This sw discussed in detail about what a private duty caregiver would be able to do. Patient verbalizes that she is interested in diabetes education as well. Request made with [facility] [place] to place a consult for the conciliation court judge to come in for an evaluation. Gold And Silver Assayer provides me with information on a program that harmeet puts on. Educated the patient on the program and provided contact information for the conciliation court judge at [facility]. Educated the patient and daughters that if she felt like she needed home health services after she got home, then she will need to reach out to her PCP, Dr Youngblood for those recommendations.
[2021-08-29 12:35] VITALS: BP 186/54; PULSE 67; TEMP 98
[2021-08-29] MEDS ORDERED: NORVASC 5MG5 MG/TAB PO (12:56)
--- NOTE | 2021-08-29 15:50 | NUR ---
LEFT CHEST CENTRAL LINE REMOVED VIA PROTOCOL. CATHETER INTACT. PATIENT TOLERATED PROCEDURE WELL. PRESSURE HELD TO SITE FOR 5 MINTUES, BLEEDING CONTROLLED. PATIENT INFORMED SHE HAD TO LAY FLAT FOR 20 MINUTES.
[2021-08-29 16:00] VITALS: BP 177/61; PULSE 70; TEMP 98.8
--- NOTE | 2021-08-29 16:30 | NUR ---
REVIEWED DISCHARGE PAPERWORK WITH PATIENT AND HER DAUGHTER. PATIENT VERBALIZED UNDERSTANDING AND SIGNED PAPERWORK. PATIENT MEETS DISCHARGE CRITERIA. ALL VS STABLE. PATIENT CHANGED INTO PERSONAL CLOTHES AND ASSISTED INTO WHEELCHAIR. PATIENT ASSISTED OUT TO VEHICLE VIA WHEELCHAIR BY AIDE.
== END 2021-08-29 16:40 | disposition home or self-care (01) | DRG 330 ==
LOC: COL.ER 23:53 → SURG 08-25 04:53
PROVIDERS: Physician Assistant; Surgery; ADMIT Internal Medicine
PROC: 0DTA0ZZ Resection of Jejunum, Open Approach (ICD-10-PCS; principal; 2021-08-25 07:30)
PROC: 05HY33Z Insertion of Infusion Device into Upper Vein, Percutaneous Approach (ICD-10-PCS; 2021-08-25 07:30)
DX: K57.00 Diverticulitis of small intestine with perforation and abscess without bleeding (principal); D62 Acute posthemorrhagic anemia; E03.9 Hypothyroidism, unspecified; I12.9 Hypertensive chronic kidney disease with stage 1 through stage 4 chronic kidney disease, or unspecified chronic kidney disease; N18.9 Chronic kidney disease, unspecified; E11.22 Type 2 diabetes mellitus with diabetic chronic kidney disease; K57.10 Diverticulosis of small intestine without perforation or abscess without bleeding; E78.5 Hyperlipidemia, unspecified; Z96.652 Presence of left artificial knee joint; Z79.4 Long term (current) use of insulin; Z23 Encounter for immunization
CPT/HCPCS: 99223-AI; 99232-AI; 99239; A4314; A9284; C1751; J0330; J0690; J1100; J1650; J1815; J2250; J2370; J2405; J2543; J2704; J3010; J3480; J7030; J7120; Q9967

== ENCOUNTER → 2021-10-22 | Outpatient (CLI) | payer MEDICARE, OTHER ==
[~2021-10-22] MED LIST changes: +NORVASC 5MG5 MG/TAB PO
== END ==
LOC: DIA.ED 07:34
DX: E11.65 Type 2 diabetes mellitus with hyperglycemia (principal); Z79.4 Long term (current) use of insulin; I10 Essential (primary) hypertension
CPT/HCPCS: G0108

== ENCOUNTER → 2021-11-12 | Outpatient (CLI) | payer MEDICARE, OTHER | LOC: DIA.ED 08:23 | DX: E11.9 Type 2 diabetes mellitus without complications (principal); Z79.4 Long term (current) use of insulin; E78.5 Hyperlipidemia, unspecified; I10 Essential (primary) hypertension; E03.9 Hypothyroidism, unspecified ==

== ENCOUNTER 2021-11-20 23:05 | Emergency (ER) | payer MEDICARE, OTHER ==
[~2021-11-20] VITALS: Ht 165.1 cm; Wt 64.5 kg
[2021-11-20 23:23] LABS: BASO % 0.3 % (0.0-2.0); EOS # 0.2 K/mm3 (0.0-0.7); EOS % 1.9 % (0.0-4.0); GRAN # 5.2 K/mm3 (1.4-6.5); GRAN % 45.5 % (42.2-75.2); HEMATOCRIT 39.6 % (37.0-47.0); HEMOGLOBIN 13.2 g/dl (12.5-16.0); LYMPH % 43.7 % (20.0-51.0); MEAN CELL VOLUME 89 fl (80.0-100.0); MEAN CORPUSCULAR HEMOGLOBIN 30 pg (27-31); MEAN CORPUSCULAR HGB CONC 33 g/dl (33.0-37.0); MEAN PLATELET VOLUME 10.6 fl (7.4-10.4); MONO # 0.9 K/mm3 (0.1-0.6); MONO % 8.2 % (1.7-9.3); PLATELET COUNT 361 K/mm3 (130-400); RED BLOOD COUNT 4.47 M/mm3 (4.10-5.30); REDCELL DISTRIBUTION WIDTH-CV 12.3 % (11.5-14.5)
[2021-11-20 23:41] LABS: ALANINE AMINOTRANSFERASE 12 U/L (0-55); ALBUMIN 4.2 gm/dL (3.4-4.8); ALKALINE PHOSPHATASE 50 U/L (40-150); ANION GAP 16 mmol/L (7-16); AST,SGOT 17 U/L (5-34); BILIRUBIN,TOTAL 0.4 mg/dL (0.2-1.2); BLOOD UREA NITROGEN 28 mg/dL (10-20); CALCIUM 9.4 mg/dL (8.4-10.2); CARBON DIOXIDE 19 mmol/L (23-31); CHLORIDE 101 mmol/L (98-107); CREATININE, serum 1.09 mg/dL (0.57-1.11); SODIUM 136 mmol/L (136-145); TOTAL PROTEIN 7.4 gm/dL (6.2-8.1)
[2021-11-20 23:44] LABS: GLUCOSE 29 mg/dL (70-99); POTASSIUM 2.9 mmol/L (3.5-4.5)
[2021-11-20 23:52] LABS: TROPONIN-I < 0.010 ng/mL (0.00-0.033)
[2021-11-21 01:49] VITALS: BP 175/72; PULSE 62; TEMP 98.3
== END 2021-11-21 01:49 | disposition home or self-care (01) ==
LOC: COL.ER 23:05
PROVIDERS: Emergency Medicine
DX: E11.649 Type 2 diabetes mellitus with hypoglycemia without coma (principal); E87.6 Hypokalemia; Z79.4 Long term (current) use of insulin
CPT/HCPCS: J3480

== ENCOUNTER → 2022-01-19 | Outpatient (CLI) | payer MEDICARE, OTHER | LOC: MC.RAD 09:27 | DX: Z12.31 Encounter for screening mammogram for malignant neoplasm of breast (principal) ==

== ENCOUNTER 2022-01-22 12:44 | Outpatient (CLI) | payer MEDICARE, OTHER ==
[2022-01-22 13:18] VITALS: BP 139/55; PULSE 59; TEMP 98.5
== END 2022-01-22 13:31 ==
LOC: EUO 12:44
DX: M81.0 Age-related osteoporosis without current pathological fracture (principal)
CPT/HCPCS: J0897

== ENCOUNTER 2023-09-01 14:45 | Outpatient (CLI) | payer MEDICARE, OTHER ==
[~2023-09-01] VITALS: Ht 162.6 cm; Wt 65.3 kg
[~2023-09-01 14:45] MED LIST changes: +ASPIRIN E.C. 8181 MG PO; +CALCITRIOL PO; +CEFTIN500 MG PO; +GLUCAGON EMERGEN1 M1 SQ; +NORVASC 10MG10 MG PO; +NOVOLOG 100U100 U/M1 SQ; +PREVALITE4 GM/5.5 G PO; +PROTONIX20 MG PO; +TRESIBA100 UNIT/1 SQ; +WELCHOL 625MG625 MG PO
[2023-09-01 15:12] VITALS: BP 112/67; PULSE 60; TEMP 98.5
[2023-09-01] MEDS ORDERED: Denosumab 60 MG/ML SYRINGE SQ ONE (15:15)
== END 2023-09-01 15:25 ==
LOC: EUO 14:45
DX: M81.0 Age-related osteoporosis without current pathological fracture (principal)
CPT/HCPCS: J0897